=== PATIENT | male | born 2000 | race African-American/Black ===

== ENCOUNTER 2020-12-18 20:43 | Emergency (ER) | payer SELFPAY ==
[2020-12-18] MEDS ORDERED: Lidocaine 1% 10 ML MDV INJECT ONE (21:17)
--- NOTE | 2020-12-18 21:47 | EDM.PDOC ---
ED HPI GENERAL MEDICAL PROBLEM - General Chief Complaint: Laceration Stated Complaint: CUT MIDDLE FINGER ON RIGHT HAND Time Seen by Provider: 12/18/20 21:00 Source of Information: Reports: Patient, RN Notes Reviewed History Limitations: Reports: No Limitations - History of Present Illness INITIAL COMMENTS - FREE TEXT/NARRATIVE: Patient is a 20-year-old male presenting to the emergency department with complaints of laceration to the right index finger and left fifth finger. Reports he is moving glass and cut himself prior to coming to the ER. He is up-to-date on his tetanus vaccination. Denies any numbness or tingling of the area. He has full use of both hands. Right Finger-Index Pain Score (Numeric/FACES): 10 - Related Data Allergies Allergy/AdvReac Type Severity Reaction Status Date / Time No Known Allergies Allergy Verified 12/18/20 21:04 Home Meds: Home Meds . [No Known Home Meds] 12/18/20 [History] Past Medical History - Past Surgical History GI Surgical History: Reports: Appendectomy Social & Family History - Tobacco Use Tobacco Use Status *Q: Never Tobacco User - Caffeine Use Caffeine Use: Reports: None - Recreational Drug Use Recreational Drug Use: No ED ROS GENERAL - Review of Systems Review Of Systems: Comprehensive ROS is negative, except as noted in HPI. ED EXAM, SKIN/RASH Exam: See Below Exam Limited By: No Limitations General Appearance: Alert, WD/WN, No Apparent Distress Respiratory/Chest: No Respiratory Distress, Lungs Clear, Normal Breath Sounds, No Accessory Muscle Use, Chest Non-Tender Cardiovascular: Normal Peripheral Pulses, Regular Rate, Rhythm, No Edema, No Gallop, No JVD, No Murmur, No Rub Neurological: Alert, Oriented, CN II-XII Intact, Normal Cognition, Normal Gait, Normal Reflexes, No Motor/Sensory Deficits Psychiatric: Normal Affect, Normal Mood Skin: Other (3.5 cm total U shaped laceration to the volar aspect of the Proximal right index finger. 1 cm laceration to the dorsal aspect of the left fifth finger immediately proximal to the nailbed. No active bleeding from either lacerations.) ED SKIN PROCEDURES - Laceration/Wound Repair Right Proximal Ventral Digit - 2nd (Index) Appearance: Subcutaneous Distal NVT: Neuro & Vascular Intact, No Tendon Injury Anesthetic Type: Local Local Anesthesia - Lidocaine (Xylocaine): 1% Plain Local Anesthetic Volume: 2cc Skin Prep: Chlorhexidine (Hibiciens), Saline, Sterile Drape Exploration/Debridement/Repair: In a Bloodless Field, Explored to Base, No Foreign Material Found Closed with: Sutures Lac/Wound length In cm: 3.5 Suture Size: 4-0 # of Sutures: 8 Suture Type: Nylon Sterile Dressing Applied: Nurse Tetanus Status Addressed: Yes Complications: No Course - Vital Signs Last Recorded V/S: Last Vital Signs Temp 97.5 F 12/18/20 21:01 Pulse 94 12/18/20 21:01 Resp 16 12/18/20 21:01 BP 109/89 12/18/20 21:01 Pulse Ox 100 12/18/20 21:01 - Orders/Labs/Meds Meds: Medications Discontinued Medications Generic Name Dose Route Start Last Admin Trade Name Sal PRN Reason Stop Dose Admin Lidocaine HCl 10 ml 12/18/20 21:17 12/18/20 21:32 Lidocaine 1% 10 Ml Mdv INJECT 12/18/20 21:18 10 ml ONETIME ONE Administration - Re-Assessments/Exams Free Text/Narrative Re-Assessment/Exam: Patient is a 20-year-old male presenting to the emergency department with complaints of laceration to his right index finger and left fifth finger. On exam, he has a slightly gaping 3.5 cm U-shaped laceration to the ventral aspect of the proximal right index finger. He also has a 1 cm superficial laceration to the dorsal aspect of the left for finger newly proximal to the nailbed. Laceration on the right index finger was closed with sutures. See procedure notes for closure. Laceration to the left fifth finger was cleansed and covered with bacitracin and Band-Aid. He is up-to-date on his vaccinations. Discharge instructions as documented. Departure - Departure Time of Disposition: 22:07 Disposition: Home, Self-Care 01 Condition: Good Clinical Impression: Laceration - Discharge Information *PRESCRIPTION DRUG MONITORING PROGRAM REVIEWED*: No *COPY OF PRESCRIPTION DRUG MONITORING REPORT IN PATIENT LEVON: No Instructions: Laceration Care, Adult Referrals: PCP,None [Primary Care Provider] - Forms: ED Department Discharge Additional Instructions: You were seen in the emergency department today for a laceration to your right index finger. The wound was cleansed and closed with 8 sutures. These should stay intact for 7 days. After that time they may be removed in the clinic by a nurse. You may call [phone] to schedule a nurse visit. Keep the wound clean and dry. Wash with normal soap and water twice daily. Do not submerge the wound in water. Watch for signs of infection including increased redness, swelling, or purulent drainage. If these should occur, you should be seen either in the clinic or in the emergency department as antibiotic treatment may be needed. Return to the ER as needed. Sepsis Event Note (ED) - Evaluation Sepsis Screening Result: No Definite Risk - Focused Exam Vital Signs: Vital Signs Temp Pulse Resp BP Pulse Ox 12/18/20 21:01 97.5 F 94 16 109/89 100
== END 2020-12-18 22:18 | disposition home or self-care (01) ==
LOC: JD.ED 20:43
DX: S61.210A Laceration without foreign body of right index finger without damage to nail, initial encounter (principal); W26.8XXA Contact with other sharp object(s), not elsewhere classified, initial encounter
CPT/HCPCS: 12002; 99282-25